=== PATIENT | male | born 1960 | race Caucasian/White ===

== ENCOUNTER 2023-05-26 10:57 | Emergency (ER) | payer OTHER, SELFPAY ==
[2023-05-26] VITALS (55 sets, daily range): BP systolic 105–170; BP diastolic 74–99; PULSE 75–123; RESP 13–39; O2SAT 89–99; BMI 47.5
--- NOTE | 2023-05-26 11:18 | XR_ITS ---
The [address] [address] Patient Name: CHRIS TAVERAS MRN: [id number] date: 1960 Sex: M Assigned Patient Location: ER Current Patient Location: ER Accession/Order Number: [id number] Exam Date: 05/26/2023 11:20 Report Date: 05/26/2023 12:32 At the request of: PAUL MENDOZA Procedure: XR chest 1V PROCEDURE: XR chest 1V DATE: 05/26/2023 11:20 AM EST COMPARISONS: CTA chest 12/12/2019 CLINICAL INDICATION: 62 years Male SOB FINDINGS: The exam is limited slightly by portable lordotic radiographic technique. Given these limitations: The cardiomediastinal silhouette and pulmonary vasculature are within normal limits. The lungs are clear. There is no evidence of pleural effusion or pneumothorax. XR/XR chest 1V IMPRESSION: Chest radiograph is within normal limits. Electronically authenticated by: CHANDANA AVILA Date: 05/26/2023 12:32
--- NOTE | 2023-05-26 11:18 | ECG_ITS ---
The [facility] Test Date: 2023-05-26 Pat Name: CHRIS TAVERAS Department: Room: - Gender: Male [employer]: : 1960 Requested By: Order Number: [id number] Reading MD: LEATHA GARDNER Measurements Intervals Barrett Rate: 99 P: 70 HI: 174 QRS: 53 QRSD: 104 T: 61 QT: 350 QTc: 407 Interpretive Statements 1100 Sinus rhythm [address] depression Nonspecific ST changes 9130 borderline ECG Compared to ECG 12/12/2019 10:02:51 ST (T wave) deviation now present Electronically Signed On 05-27-2023 7:19:25 EST by LEATHA GARDNER
--- NOTE | 2023-05-26 11:19 | PC.NURSE ---
PT PRESENT TO ER WITH C/O SOB. PT STATES WORRIED HAS A PE . PT HAS HX PE. PT CURRENTLY ON ELIQUIS BUT MISSED 2 DOSES BUT TOOK IT TODAY
--- NOTE | 2023-05-26 11:19 | ED.SOB1 ---
HPI - SOB/Dyspnea General Chief Complaint: Shortness of Breath/Dyspnea Stated Complaint: SHORTNESS OF BREATH Time Seen by Provider: 05/26/23 11:14 Source: patient Mode of arrival: Wheelchair Limitations: no limitations History of Present Illness HPI Narrative: 62-year-old male presents for shortness of breath which began this morning. He states that he is worried he might have a pulmonary embolism. He is on Eliquis and has had pulmonary emboli in the past. He missed the last 2 days of doses but took it this morning. No fever or productive cough. Related Data Home Medications Medication Instructions Recorded Confirmed allopurinol 300 mg tablet 300 mg PO DAILY 05/26/23 05/26/23 amlodipine 2.5 mg tablet 2.5 mg PO DAILY 05/26/23 05/26/23 apixaban 5 mg tablet (Eliquis) 5 mg PO Q12H 05/26/23 05/26/23 lisinopril 40 mg tablet 40 mg PO DAILY 05/26/23 05/26/23 Allergies Allergy/AdvReac Type Severity Reaction Status Date / Time IDOINE Allergy Intermediate Uncoded 05/26/23 11:03 Review of Systems ROS Narrative A ten point review of systems is negative except as noted above. PFSH PFSH Social History Smoking status: Former smoker Exam Narrative Exam Narrative: Nurses note and vital signs reviewed and patient is not hypoxic. General: The patient appears well and in no apparent distress. Patient is resting comfortably on cart. Skin: Warm, dry, no pallor noted. There is no rash noted. Head: Normocephalic, atraumatic Eye: Normal conjunctiva, no drainage Ears, Nose, Mouth, and Throat: oral mucosa is moist. Nares patent. Cardiovascular: Regular Rate and Rhythm Respiratory: Patient is in no distress, no accessory muscle use, lungs are clear to auscultation, no wheezing, rales or rhonchi Back: non-tender GI: Obese soft and nontender Musculoskeletal: He has chronic swelling in both legs Neurological: A&O, normal speech Psychiatric: Cooperative Constitutional Vital Signs, click to edit/add: Last Vital Signs Pulse 112 H 05/26/23 15:31 Resp 20 05/26/23 15:31 BP 170/99 H 05/26/23 15:31 Pulse Ox 98 05/26/23 15:31 O2 Del Method Room Air, Nasal Cannula 05/26/23 11:16 O2 Flow Rate 3 05/26/23 11:16 Course Vital Signs Vital signs: Vital Signs Pulse Rate 114 H 05/26/23 11:00 Respiratory Rate 32 H 05/26/23 11:00 Blood Pressure 129/98 H 05/26/23 11:00 Pulse Oximetry 89 L 05/26/23 11:00 Oxygen Delivery Method Room Air 05/26/23 11:00 Pulse Rate 112 H 05/26/23 15:31 Respiratory Rate 20 05/26/23 15:31 Blood Pressure 170/99 H 05/26/23 15:31 Pulse Oximetry 98 05/26/23 15:31 Oxygen Delivery Method Room Air, Nasal Cannula 05/26/23 11:16 Oxygen Delivery Flow Rate 3 05/26/23 11:16 MDM - SOB/Dyspnea MDM Narrative Medical decision making narrative: Pulmonary embolism is identified and he started on IV heparin. I have spoken to the hospitalist at [facility] who accepts the patient. The patient is stable and agreeable for transfer. I have also spoken to the interventional team as well. Findings are discussed thoroughly with the patient. Troponin initially was elevated and subsequently increased. This is likely from heart strain. Differential Diagnosis Differential diagnosis: Likely acute exacerbation of chronic obstructive airways disease, congestive heart failure, community acquired pneumonia and pulmonary embolism Lab Data Attestation: I reviewed the patient's lab results. Labs: Lab Results 05/26/23 05/26/23 Range/Units 11:14 12:48 WBC 8.5 (4.0-11.0) 10^3/uL RBC 4.81 (4.70-6.10) 10^6/uL Hgb 13.5 L (14.0-18.0) g/dL Hct 43.6 (42.0-54.0) % MCV 90.6 (80.0-94.0) fL MCH 28.1 (25.9-34.0) pg MCHC 31.0 (29.9-35.2) g/dL RDW 13.3 (11.0-15.0) % Plt Count 279 (150-450) 10^3/uL MPV 10.5 (9.5-13.5) fL Neut % (Auto) 65.2 (43.0-75.0) % Lymph % (Auto) 20.7 (20.5-60.0) % Twiggs % (Auto) 9.1 (1.7-12.0) % Eos % (Auto) 3.8 (0.9-7.0) % Baso % (Auto) 0.8 (0.2-2.0) % Neut # (Auto) 5.5 (1.4-6.5) 10^3/uL Lymph # (Auto) 1.8 (1.2-3.8) 10^3/uL Twiggs # (Auto) 0.8 (0.3-0.8) 10^3/uL Eos # (Auto) 0.3 (0.0-0.7) 10^3/uL Baso # (Auto) 0.1 (0.0-0.1) 10^3/uL Abs Immat Gran (auto) 0.03 (0.00-0.03) 10^3/uL Imm/Tot Granulo (auto) 0.4 (0.0-0.5) % Sodium 140 (136-145) mmol/L Potassium 3.9 (3.5-5.1) mmol/L Chloride 102 (98-107) mmol/L Carbon Dioxide 29.9 (21.0-32.0) mmol/L Anion Gap 12.0 BUN 15.0 (7.0-18.0) mg/dL Creatinine 1.21 (0.70-1.30) mg/dL Est GFR ( Amer) >60 (>=60) Est GFR (Non-Af Amer) >60 (>=60) BUN/Creatinine Ratio 12.4 Glucose 131 H (74-106) mg/dL Calcium 9.1 (8.5-10.1) mg/dL Troponin I High Sens 145.0 H* 759.9 H* (4.0-76.1) pg/mL Influenza Type A Ag Negative Influenza Type B Ag Negative SARS-CoV-2 Ag (CV2AG) Negative (NEGATIVE) Imaging Data CT scan - chest: Radiologist's impression: ITS Impressions Chest X-Ray 05/26/23 11:18 IMPRESSION: Chest radiograph is within normal limits. Electronically authenticated by: CHANDANA AVILA Date: 05/26/2023 12:32 Chest CTA 05/26/23 11:35 IMPRESSION: Acute pulmonary embolism involving bilateral interlobar, extending to the segmental branches of the bilateral lower lobes and middle lobe as well as segmental branches of the upper lobes Bilateral lower lobes mosaic attenuation and groundglass opacities, likely representing atelectasis and sequela of pulmonary embolism. The right ventricle measures 5.7 cm and left ventricle measures 4.5 cm. No reflux of contrast is noted within the IVC. Findings are nonspecific and may represent heart strain. Correlation with echocardiography is recommended. Critical results were NOTIFIED by TELEPHONE BY Dr. Melba Hernandez MD to md marisela At 05/26/2023 1:26 PM EST. Electronically authenticated by: MELBA HERNANDEZ Date: 05/26/2023 13:35 ECG Data Attestation: I personally reviewed and interpreted this ECG as follows: (EKG on my interpretation shows sinus rhythm without ST segment elevation and a rate of 99.) Critical Care Time Critical Care Time Critical Care Time: Yes Total Critical Care Time: 60 Attestation: Due to the high probability of sudden and clinically significant deterioration in the patient's condition he/she required the highest level of my preparedness to intervene urgently I provided critical care time including documentation time, medication orders and management, reevaluation, vital sign assessment, ordering and reviewing of lab tests, ordering and reviewing of x-ray studies, and admission orders. Aggregate critical care time is 60 minutes including only time during which I was engaged in work directly related to his/her care and did not include time spent treating other patients simultaneously. Discharge Plan Discharge Chief Complaint: Shortness of Breath/Dyspnea Clinical Impression: Pulmonary embolism Patient Disposition: [facility] Time of Disposition Decision: 15:44 Discharge Location: [facility] Condition: Good Mode of Transportation: EMS
[2023-05-26 11:25] LABS: Basophils Absolute Auto 0.1 10^3/uL (0.0-0.1); Basophils Percent Auto 0.8 % (0.2-2.0); Eosinophils Absolute Auto 0.3 10^3/uL (0.0-0.7); Eosinophils Percent Auto 3.8 % (0.9-7.0); Hematocrit 43.6 % (42.0-54.0); Hemoglobin 13.5 g/dL (14.0-18.0); Immature Granulocytes Abs Auto 0.03 10^3/uL (0.00-0.03); Immature Granulocytes Pct Auto 0.4 % (0.0-0.5); Lymphocytes Absolute Auto 1.8 10^3/uL (1.2-3.8); Lymphocytes Percent Auto 20.7 % (20.5-60.0); Mean Corpuscular Hemoglobin 28.1 pg (25.9-34.0); Mean Corpuscular Volume 90.6 fL (80.0-94.0); Mean Platelet Volume 10.5 fL (9.5-13.5); Monocytes Absolute Auto 0.8 10^3/uL (0.3-0.8); Monocytes Percent Auto 9.1 % (1.7-12.0); Neutrophils Absolute Auto 5.5 10^3/uL (1.4-6.5); Neutrophils Percent Auto 65.2 % (43.0-75.0); Platelet Count 279 10^3/uL (150-450); Red Blood Count 4.81 10^6/uL (4.70-6.10); Red Cell Distribution Width 13.3 % (11.0-15.0); White Blood Count 8.5 10^3/uL (4.0-11.0)
--- NOTE | 2023-05-26 11:35 | CT_ITS ---
The [address] [address] Patient Name: CHRIS TAVERAS MRN: [id number] date: 1960 Sex: M Assigned Patient Location: ER Current Patient Location: Accession/Order Number: [id number] Exam Date: 05/26/2023 12:15 Report Date: 05/26/2023 13:35 At the request of: PAUL MENDOZA Procedure: CT angio chest EXAM: CT angio chest HISTORY: Short of breath, history of pulmonary embolism COMPARISON: 12/12/2019 TECHNIQUE: CT chest with intravenous contrast was performed with timing for the evaluation for pulmonary arteries. Multiplanar reformats were performed. MIP (maximum intensity projection) images or 3D post processing was performed. Dose reduction techniques were achieved by using automated exposure control and/or adjustment of mA and/or kV according to patient size and/or use of iterative reconstruction technique. FINDINGS: Lungs: No pneumothorax, or effusion. Bilateral lower lobes mosaic attenuation and groundglass opacities, likely representing atelectasis and sequela of pulmonary embolism. Airways: Normal. Mediastinum: No adenopathy. Aorta: No aneurysm. Cardiac: Normal size. The right ventricle measures 5.7 cm and left ventricle measures 4.5 cm. No reflux of contrast is noted within the IVC. Findings are nonspecific and may represent heart strain. Correlation with echocardiography is recommended. No pericardial effusion. Pulmonary vasculature: Filling defects are noted in the bilateral interlobar, extending to the segmental branches of the bilateral lower lobes and middle lobe as well as segmental branches of the upper lobes. Normal morphology. Bones: No acute bony abnormality. Axilla: No adenopathy. Thyroid gland: No abnormality demonstrated on provided imaging. Soft tissues: Unremarkable. Upper abdomen: Unremarkable. Additional findings: None. CT/CT angio chest IMPRESSION: Acute pulmonary embolism involving bilateral interlobar, extending to the segmental branches of the bilateral lower lobes and middle lobe as well as segmental branches of the upper lobes Bilateral lower lobes mosaic attenuation and groundglass opacities, likely representing atelectasis and sequela of pulmonary embolism. The right ventricle measures 5.7 cm and left ventricle measures 4.5 cm. No reflux of contrast is noted within the IVC. Findings are nonspecific and may represent heart strain. Correlation with echocardiography is recommended. Critical results were NOTIFIED by TELEPHONE BY Dr. Melba Hernandez MD to md marisela At 05/26/2023 1:26 PM EST. Electronically authenticated by: MELBA HERNANDEZ Date: 05/26/2023 13:35
[2023-05-26 11:39] LABS: Influenza Virus A Antigen Negative; Influenza Virus B Antigen Negative; SARS-CoV-2 Ag NEGATIVE (NEGATIVE)
[2023-05-26 11:40] LABS: Internal Control Within Normal Limits
[2023-05-26 11:42] LABS: BUN Creatinine Ratio 12.4; Calcium 9.1 mg/dL (8.5-10.1); Carbon Dioxide 29.9 mmol/L (21.0-32.0); Chloride 102 mmol/L (98-107); Estimated GFR (African America >60 (>=60); Estimated GFR (Non-African Ame >60 (>=60); Glucose 131 mg/dL (74-106); Potassium 3.9 mmol/L (3.5-5.1); Sodium 140 mmol/L (136-145)
[2023-05-26 13:25] LABS: Troponin I High Sensitivity 759.9 pg/mL (4.0-76.1)
[2023-05-26] MEDS: ASPIRIN 81 MG TABLET.DR PO (13:40)
[2023-05-26] MEDS: HEPARIN SODIUM (PORCINE) 5,000 UNIT/ML VIAL 10000 UNIT IV (15:25)
[2023-05-26] MEDS: HEPARIN SODIUM,PORCINE/D5W 25,000 UNIT/500 ML IV.SOLN 30 UNIT IV (15:26)
== END 2023-05-26 18:14 | disposition short-term general hospital (02) ==
PROVIDERS: Emergency Provider Emergency Medicine
DX: I26.99 Other pulmonary embolism without acute cor pulmonale (principal); Z79.01 Long term (current) use of anticoagulants; Z86.711 Personal history of pulmonary embolism; Z79.899 Other long term (current) drug therapy; Z87.891 Personal history of nicotine dependence; Z20.822 Contact with and (suspected) exposure to COVID-19
CPT/HCPCS: 36415; 71045; 71275; 80048; 84484; 85025; 87804; 87811; 93005; 96374; 99291; J1644; Q9967

== ENCOUNTER 2024-03-03 11:56 | Outpatient (OUT) | payer OTHER, SELFPAY ==
[2024-03-03 13:01] LABS: Alanine Aminotransferase 26 U/L (16-63); Albumin Globulin Ratio 0.7; Albumin Level 3.5 g/dL (3.4-5.0); Alkaline Phosphatase 78 U/L (46-116); Aspartate Amino Transferase 16 U/L (15-37); BUN Creatinine Ratio 13.4; Bilirubin Total 0.5 mg/dL (0.2-1.0); Calcium 9.7 mg/dL (8.5-10.1); Carbon Dioxide 23.5 mmol/L (21.0-32.0); Chloride 102 mmol/L (98-107); Chol HDL Ratio 5.1; Cholesterol 223 mg/dL (<=200); Estimated GFR (African America >60 (>=60 mL/min/1.73m^2); Estimated GFR (Non-African Ame 51 (>=60 mL/min/1.73m^2); Globulin 4.8 g/dL; Glucose 115 mg/dL (74-106); HDL Cholesterol 44 mg/dL (40-60); Potassium 4.5 mmol/L (3.5-5.1); Sodium 138 mmol/L (136-145); Total Protein 8.3 g/dL (6.4-8.2); Triglycerides 134 mg/dL (<=150); VLDL CHOLESTEROL 26.8 mg/dL
[2024-03-03 13:23] LABS: Prostate Specific Antigen Scrn 1.72 ng/mL (<=4.00)
== END 2024-03-03 11:57 | disposition home or self-care (01) ==
LOC: LAB 11:57
DX: R79.83 Abnormal findings of blood amino-acid level (principal); Z12.5 Encounter for screening for malignant neoplasm of prostate; Z86.711 Personal history of pulmonary embolism; I10 Essential (primary) hypertension; E66.01 Morbid (severe) obesity due to excess calories; I87.2 Venous insufficiency (chronic) (peripheral); J45.20 Mild intermittent asthma, uncomplicated; M10.9 Gout, unspecified; Z13.6 Encounter for screening for cardiovascular disorders
CPT/HCPCS: 36415; 80053; 80061; 84550; G0103

== ENCOUNTER 2024-10-01 10:57 | Outpatient (RCR) | payer BC, SELFPAY | END 2024-11-15 10:50 | disposition home or self-care (01) | LOC: OT 10:57 | DX: I89.0 Lymphedema, not elsewhere classified (principal); R60.9 Edema, unspecified; Z86.711 Personal history of pulmonary embolism | CPT/HCPCS: 97140; 97166; 97530; 97535 ==